=== PATIENT | female | born 1985 | race Caucasian/White ===

== ENCOUNTER 2017-11-10 11:54 | Emergency (ER) | payer OTHER ==
[~2017-11-10] VITALS: Ht 167.6 cm; Wt 68.0 kg
[~2017-11-10 11:54] MED LIST: CIPR500T PO; DIPH25CA58 PO; HYDR-971 PO; MEDR150D3 IM; NEOM28.32 TP; ONDA4TAB10 SL
[2017-11-10] MEDS ORDERED: IV NORMAL SALINE 1,000ML 1,000 ML IV ONE (12:15)
--- NOTE | 2017-11-10 12:23 | RAD ---
EXAM: Chest, single view. HISTORY: Near syncope. COMPARISON: None. FINDINGS: A frontal view of the chest is obtained. There is no infiltrate, pleural effusion or pneumothorax. The heart is normal in size. IMPRESSION: No acute pulmonary finding. Electronically signed by: Alyssa Stafford MD (11/10/2017 12:19 PM) [place] [id number]
[2017-11-10] MEDS ORDERED: LORazepam 1 MG TABLET PO ONE (12:30)
--- NOTE | 2017-11-10 12:34 | EKG ---
[address] [address] Test Date: 2017-11-10 Test Time: 12:06:10 Pat Name: HELGA CHENG Department: Room: Gender: F Manager Lsw: : 1985 Requested By: ANALI VEGA Order Number: [id number] Reading MD: Teddy Lopez MD Measurements Intervals [place] Rate: 73 P: 54 WA: 152 QRS: 66 QRSD: 88 T: 66 QT: 364 QTc: 404 Interpretive Statements SINUS RHYTHM Electronically Signed On 11-10-2017 12:43:04 CDT by Teddy Lopez MD
--- NOTE | 2017-11-10 12:45 | RAD ---
CT of the head without contrast, 11/10/2017: HISTORY: Near syncope The ventricles are within normal limits in size. There is no shift of the midline structures. There is no evidence of acute intracranial hemorrhage or mass effect. IMPRESSION: No acute intracranial abnormality is detected. RS Compliance Statement: One or more of the following individualized dose reduction techniques were utilized for this examination: 1. Automated exposure control 2. Adjustment of the mA and/or kV according to patient size 3. Use of iterative reconstruction technique Electronically signed by: Vicente Sam MD (11/10/2017 12:41 PM) [facility]
[2017-11-10 12:48] LABS: BASO % 1 % (0-3); EOS % 1 % (0-3); HEMATOCRIT 38.7 % (36.0-47.0); HEMOGLOBIN 13.3 g/dL (12.0-15.5); LYMPH # 1.8 x10^3/uL (1.0-4.8); LYMPH % 28 % (24-48); MEAN CORPUSCULAR HEMOGLOBIN 30 pg (25-35); MEAN CORPUSCULAR HGB CONC 34 g/dL (31-37); MEAN CORPUSCULAR VOLUME 88 fL (79-100); MONO # 0.4 x10^3/uL (0.0-1.1); MONO % 6 % (0-9); NEUT # 4.1 x10^3uL (1.8-7.7); NEUT % 65 % (31-73); PLATELET COUNT 226 x10^3/uL (140-400); RED BLOOD COUNT 4.39 x10^6/uL (3.50-5.40); RED CELL DISTRIBUTION WIDTH 12.9 % (11.5-14.5); WHITE BLOOD COUNT 6.3 x10^3/uL (4.0-11.0)
[2017-11-10 12:58] LABS: PREG TEST PT QUAL NEGATIVE (NEG)
[2017-11-10 13:06] LABS: ALBUMIN 4.2 g/dL (3.4-5.0); CALCIUM 9.4 mg/dL (8.5-10.1); CREATININE 0.7 mg/dL (0.6-1.0); DIRECT BILIRUBIN 0.1 mg/dL (0.0-0.2); GFR 98.3; POTASSIUM 3.3 mmol/L (3.5-5.1); TOTAL BILIRUBIN 0.5 mg/dL (0.2-1.0); TOTAL PROTEIN 7.5 g/dL (6.4-8.2)
[2017-11-10] MEDS ORDERED: IOHEXOL 300 MG/ML 75 ML VIAL. IV ONE (14:00)
--- NOTE | 2017-11-10 14:06 | RAD ---
CT ANGIOGRAPHY CHEST dated 11/10/2017 1:38 PM Indication:. Possible pulmonary embolusELEVATED D-DIMER, 75MLS OMNI 300 IV CONTRAST. Comparison: No comparison is available. Technique: Contiguous axial imaging the chest performed following intravenous and demonstration of 75 cc Omnipaque 300. Study was performed as dedicated PE protocol with thin cut coronal MIPS 3-D reconstruction. One or more of the following individualized dose reduction techniques were utilized for this examination: 1. Automated exposure control 2. Adjustment of the mA and/or kV according to patient size 3. Use of iterative reconstruction technique Findings: Contrast bolus is adequate. No evidence of central, lobar or segmental pulmonary embolus. Subsegmental branches are not well evaluated as on technique. Heart size is within normal limits. No pericardial effusion. There is some increased density in the anterior superior mediastinum that likely represents residual thymic tissue. No mediastinal, hilar or axillary lymphadenopathy. Thyroid gland is unremarkable. Central airways are patent. Lungs are clear without focal consolidation. Vascular interstitium within normal limits. No pleural effusion or pneumothorax. Limited images of upper abdomen unremarkable. No acute bony abnormality. IMPRESSION: 1. No evidence of central, lobar or segmental pulmonary embolus. 2. Clear lungs. The Electronically signed by: Yonathan Stroud MD (11/10/2017 2:03 PM) [facility]
--- NOTE | 2017-11-10 14:22 | PHYS DOC ---
Past History Past Medical History: Endometriosis, GERD, Ovarian Cyst, UTI, Other Past Surgical History: No Surgical History, Tonsillectomy Alcohol Use: None Drug Use: None Adult General Chief Complaint Chief Complaint: CHEST PAIN HPI HPI 32-year-old female presenting to the emergency department with chest tightness intermittently over the past 2-3 hours. She describes it as a tightness associated with tingling more in the left hand than the right. The tightness is moderate nonradiating intermittent and without alleviating factors. Patient denies high blood pressure high cholesterol diabetes smoking or family history of heart disease. She denies unilateral leg swelling oral contraceptives, hemoptysis personal or family history of blood clotting disorders. Review of systems is negative for fevers chills cough abdominal pain nausea or vomiting. All other review of systems is negative unless otherwise noted in history of present illness. ED course: 32-year-old female presenting to the emergency department today with chest pain. EKG obtained and reviewed by myself shows sinus rhythm with regular rate. ST segments congruent. Not suggestive of ACS. Head CT unremarkable. CBC and chemistry panel unremarkable. D-dimer was elevated. CT angiogram shows no evidence of pulmonary embolism. negative. Troponin negative. On reexamination she is feeling better. We will discharge her home to follow up with PCP. Heart score 0. The patient has been examined and was not found to have an emergency medical condition. The patient was then discharged home in stable condition to follow up with their primary care physician over the next 2- 3 days. They were to return if their symptoms worsened or if they were concerned for any reason. They were also instructed to return to the emergency department if they were unable to get the recommended and appropriate follow- up. [id number] discharge instructions and return precautions were given. Patient's questions were answered to their satisfaction. Patient is comfortable with plan. Review of Systems Review of Systems SEE ABOVE. Current Medications Current Medications Current Medications Medications (Trade) Dose Ordered Sig/Brittny Start Time Stop Time Status Last Admin Dose Admin Iohexol (Omnipaque 300 Mg/ml) 75 ml 1X ONCE 11/10/17 14:00 11/10/17 14:01 DC 11/10/17 13:48 75 ML Lorazepam (Ativan) 1 mg 1X ONCE 11/10/17 12:30 11/10/17 12:31 DC 11/10/17 13:06 1 MG Sodium Chloride 1,000 ml @ 1,000 mls/hr 1X ONCE 11/10/17 12:15 11/10/17 13:14 DC 11/10/17 13:06 1,000 MLS/HR Allergies Allergies Allergies Coded Allergies Type Severity Reaction Last Updated Verified bismuth subsalicylate Allergy Intermediate Hives 08/16/14 Yes famotidine Allergy Intermediate HIVES 08/16/14 Yes Physical Exam Physical Exam SEE ABOVE Constitutional: Well developed, well nourished, no acute distress, non-toxic appearance. [] HENT: Normocephalic, atraumatic, bilateral external ears normal, oropharynx moist, no oral exudates, nose normal. [] Eyes: PERRLA, EOMI, conjunctiva normal, no discharge. [] Neck: Normal range of motion, no tenderness, supple, no stridor. [] Cardiovascular:Heart rate regular rhythm, no murmur [] Lungs & Thorax: Bilateral breath sounds clear to auscultation [] Abdomen: Bowel sounds normal, soft, no tenderness, no masses, no pulsatile masses. [] Skin: Warm, dry, no erythema, no rash. [] Back: No tenderness, no CVA tenderness. [] Extremities: No tenderness, no cyanosis, no clubbing, ROM intact, no edema. [] Neurologic: Alert and oriented X 3, normal motor function, normal sensory function, no focal deficits noted. [] Psychologic: Affect normal, judgement normal, mood normal. [] Current Patient Data Vital Signs Vital Signs Date Time Temp Pulse Resp B/P (MAP) Pulse Ox O2 Delivery O2 Flow Rate FiO2 11/10/17 13:24 60 20 115/69 (84) 100 Room Air 11/10/17 11:54 98.1 Lab Results Laboratory Tests Test 11/10/17 12:27 White Blood Count 6.3 x10^3/uL (4.0-11.0) Red Blood Count 4.39 x10^6/uL (3.50-5.40) Hemoglobin 13.3 g/dL (12.0-15.5) Hematocrit 38.7 % (36.0-47.0) Mean Corpuscular Volume 88 fL (79-100) Mean Corpuscular Hemoglobin 30 pg (25-35) Mean Corpuscular Hemoglobin Concent 34 g/dL (31-37) Red Cell Distribution Width 12.9 % (11.5-14.5) Platelet Count 226 x10^3/uL (140-400) Neutrophils (%) (Auto) 65 % (31-73) Lymphocytes (%) (Auto) 28 % (24-48) Monocytes (%) (Auto) 6 % (0-9) Eosinophils (%) (Auto) 1 % (0-3) Basophils (%) (Auto) 1 % (0-3) Neutrophils # (Auto) 4.1 x10^3uL (1.8-7.7) Lymphocytes # (Auto) 1.8 x10^3/uL (1.0-4.8) Monocytes # (Auto) 0.4 x10^3/uL (0.0-1.1) Eosinophils # (Auto) 0.0 x10^3/uL (0.0-0.7) Basophils # (Auto) 0.0 x10^3/uL (0.0-0.2) D-Dimer (Milla) 0.75 mg/L (0.00-0.50) H Sodium Level 140 mmol/L (136-145) Potassium Level 3.3 mmol/L (3.5-5.1) L Chloride Level 106 mmol/L (98-107) Carbon Dioxide Level 28 mmol/L (21-32) Anion Gap 6 (6-14) Blood Urea Nitrogen 12 mg/dL (7-20) Creatinine 0.7 mg/dL (0.6-1.0) Estimated GFR (Cockcroft-Gault) 98.3 Glucose Level 107 mg/dL (70-99) H Calcium Level 9.4 mg/dL (8.5-10.1) Total Bilirubin 0.5 mg/dL (0.2-1.0) Direct Bilirubin 0.1 mg/dL (0.0-0.2) Aspartate Amino Transferase (AST) 17 U/L (15-37) Alanine Aminotransferase (ALT) 27 U/L (14-59) Alkaline Phosphatase 35 U/L (46-116) L Troponin I Quantitative < 0.017 ng/mL (0-0.055) Total Protein 7.5 g/dL (6.4-8.2) Albumin 4.2 g/dL (3.4-5.0) Lipase 251 U/L (73-393) Serum Test, Qualitative Negative (NEG) EKG EKG [] Radiology/Procedures Radiology/Procedures [] Course & Med Decision Making Course & Med Decision Making Pertinent Labs and Imaging studies reviewed. (See chart for details) [] Dragon Disclaimer Dragon Disclaimer This electronic medical record was generated, in whole or in part, using a voice recognition dictation system. Departure Departure: Impression: Primary Impression: Chest pain Additional Impression: Syncope Disposition: 01 HOME, SELF-CARE Condition: STABLE Referrals: DIEGO MOODY MD (PCP) Patient Instructions: Chest Pain (Nonspecific) Additional Instructions: Thank you for allowing us to participate in your care today. Return to the emergency department you have any new or worsening symptoms, or if you are concerned for any reason. Return to emergency department if you have any new or concerning symptoms including but not limited to fever, chills, nausea, vomiting, intractable pain, any new rashes, chest pain, shortness of air , uncontrolled bleeding, difficulty breathing, and/or vision loss. Follow up with your primary care physician within 3 days. Call your Primary Doctor tomorrow and inform them of your visit today. If you do not have a primary care provider we are happy to provide you with a list of our primary care providers contact information. This condition should be evaluated by your primary care physician and any recommended consulting services for continued management within 2-3 days after discharge. If at any time, you are having difficulty getting into your primary care doctor or a specialist, return to the emergency department. Problem Qualifiers ANALI VEGA MD Nov 10, 2017 14:22
[2017-11-10 14:55] VITALS: BP 104/62
== END 2017-11-10 16:00 | disposition home or self-care (01) ==
LOC: ER 11:54
DX: R07.89 Other chest pain (principal); R55 Syncope and collapse; K21.9 Gastro-esophageal reflux disease without esophagitis; Z87.440 Personal history of urinary (tract) infections; Z88.8 Allergy status to other drugs, medicaments and biological substances
CPT/HCPCS: 36415; 70450; 71045; 71275; 80048; 80076; 83690; 84484; 84703; 85025; 85379; 93005; 96360; 96361; 99285; Q9967; J7030

== ENCOUNTER 2018-10-09 00:22 | Emergency (ER) | payer BC, OTHER ==
[~2018-10-09] VITALS: Ht 170.2 cm; Wt 68.0 kg
[~2018-10-09 00:22] MED LIST changes: +HYDR-3165 PO; -HYDR-971 PO
--- NOTE | 2018-10-09 00:27 | ED.ADGEN ---
Past History Past Medical History: Endometriosis, GERD, Ovarian Cyst, UTI, Other Past Surgical History: No Surgical History, Tonsillectomy Alcohol Use: None Drug Use: None Adult General Chief Complaint Chief Complaint ".. I was running over these [employer] course at [facility].. And twisted my left knee... And had surgery on this meniscus before when I asked about age 17... This hurts more than it did then.." HPI HPI Patient is a 33 year old female who presents with Lt knee injury. Patient able to do straight leg lift with pain. Unable to bend knee due to pain and swe lling. Patient localizes pain to collateral ligaments and medial meniscus. Has scars from previous knee surgery. Distal neurovascular appears intact. There is swelling in left knee as compared to right knee. Patient denies any other injury. Is not able to bear weight without marked pain. Injury occurred approximately 1700 hrs. Review of Systems Review of Systems Constitutional: Denies fever or chills [] Eyes: Denies change in visual acuity, redness, or eye pain [] HENT: Denies nasal congestion or sore throat [] Respiratory: Denies cough or shortness of breath [] Cardiovascular: No additional information not addressed in HPI [] GI: Denies abdominal pain, nausea, vomiting, bloody stools or diarrhea [] : Denies dysuria or hematuria [] Musculoskeletal: Complaints of left knee pain Integument: Denies rash or skin lesions [] Neurologic: Denies headache, focal weakness or sensory changes [] Endocrine: Denies polyuria or polydipsia [] All other systems were reviewed and found to be within normal limits, except as documented in this note. Family History Family History Noncontributory Current Medications Current Medications Current Medications Medications (Trade) Dose Ordered Sig/Brittny Start Time Stop Time Status Last Admin Dose Admin Hydrocodone Bitartrate/ Ibuprofen (Vicoprofen 7.5-200) 2 tab 1X ONCE 10/09/18 01:30 10/09/18 01:31 DC 10/09/18 01:35 2 TAB Allergies Allergies Allergies Coded Allergies Type Severity Reaction Last Updated Verified bismuth subsalicylate Allergy Intermediate Hives 08/16/14 Yes famotidine Allergy Intermediate HIVES 08/16/14 Yes Physical Exam Physical Exam Constitutional: Well developed, well nourished, in moderately acute distress, non-toxic appearance. [] HENT: Normocephalic, atraumatic, bilateral external ears normal, oropharynx moist, no oral exudates, nose normal. [] Eyes: PERRLA, EOMI, conjunctiva normal, no discharge. [] Neck: Normal range of motion, no tenderness, supple, no stridor. [] Cardiovascular:Heart rate regular rhythm, no murmur [] Lungs & Thorax: Bilateral breath sounds clear to auscultation [] Abdomen: Bowel sounds normal, soft, no tenderness, no masses, no pulsatile masses. [] Skin: Warm, dry, no erythema, no rash. [] Back: No tenderness, no CVA tenderness. [] Extremities: No tenderness, no cyanosis, no clubbing, ROM intact, no edema. []Except findings in left knee as per history of present illness Neurologic: Alert and oriented X 3, normal motor function, normal sensory function, no focal deficits noted. [] Psychologic: Affect anxious, judgement normal, mood normal. [] Current Patient Data Vital Signs Vital Signs Date Time Temp Pulse Resp B/P (MAP) Pulse Ox O2 Delivery O2 Flow Rate FiO2 10/09/18 00:42 98.2 77 18 98 Room Air Lab Results Laboratory Tests Test 10/09/18 01:15 Urine Collection Type Unknown Urine Color Yellow Urine Clarity Hazy Urine pH 6.5 Urine Specific [place] 1.020 Urine Protein Neg (NEG-TRACE) Urine Glucose (UA) Neg mg/dL (NEG) Urine Ketones (Stick) Trace mg/dL (NEG) Urine Blood Neg (NEG) Urine Nitrite Neg (NEG) Urine Bilirubin Neg (NEG) Urine Urobilinogen Dipstick 2 mg/dL (0.2 mg/dL) Urine Leukocyte Esterase Neg (NEG) Urine RBC Occ /HPF (0-2) Urine WBC 1-4 /HPF (0-4) Urine Squamous Epithelial Cells Mod /LPF Urine Bacteria 0 /HPF (0-FEW) Urine Mucus Mod /LPF Urine Opiates Screen Neg (NEG) Urine Methadone Screen Neg (NEG) Urine Barbiturates Neg (NEG) Urine Phencyclidine Screen Neg (NEG) Urine Amphetamine/Methamphetamine Neg (NEG) Urine Benzodiazepines Screen Neg (NEG) Urine Cocaine Screen Neg (NEG) Urine Cannabinoids Screen Pos (NEG) Urine Ethyl Alcohol Neg (NEG) EKG EKG [] Radiology/Procedures Radiology/Procedures My interpretation of left knee film shows soft tissue edema. No obvious fracture or dislocation.[] Course & Med Decision Making Course & Med Decision Making Pertinent Labs and Imaging studies reviewed. (See chart for details). Distal neurovascular intact after application of Gage wrap and OCL splint Patient rest. Elevated knee. Wear splint. Use crutches. Ice packs as needed. Tylenol and ibuprofen for pain. For marked pain may Vicoprofen up to 4 times a day. Must follow-up primary care. Follow-up orthopedics. Return if any concerns. [] Final Impression Final Impression 1. Left knee injury -meniscus and collateral ligament[] Dragon Disclaimer Dragon Disclaimer This electronic medical record was generated, in whole or in part, using a voice recognition dictation system. Discharge Summary Visit Information Final Diagnosis Problems Medical Problems: (1) Left knee sprain Status: Acute Brief Hospital Course Allergies Allergies Coded Allergies Type Severity Reaction Last Updated Verified bismuth subsalicylate Allergy Intermediate Hives 08/16/14 Yes famotidine Allergy Intermediate HIVES 08/16/14 Yes Vital Signs Vital Signs Date Time Temp Pulse Resp B/P (MAP) Pulse Ox O2 Delivery O2 Flow Rate FiO2 10/09/18 00:42 98.2 77 18 98 Room Air Lab Results Laboratory Tests Test 10/09/18 01:15 Urine Collection Type Unknown Urine Color Yellow Urine Clarity Hazy Urine pH 6.5 Urine Specific [place] 1.020 Urine Protein Neg (NEG-TRACE) Urine Glucose (UA) Neg mg/dL (NEG) Urine Ketones (Stick) Trace mg/dL (NEG) Urine Blood Neg (NEG) Urine Nitrite Neg (NEG) Urine Bilirubin Neg (NEG) Urine Urobilinogen Dipstick 2 mg/dL (0.2 mg/dL) Urine Leukocyte Esterase Neg (NEG) Urine RBC Occ /HPF (0-2) Urine WBC 1-4 /HPF (0-4) Urine Squamous Epithelial Cells Mod /LPF Urine Bacteria 0 /HPF (0-FEW) Urine Mucus Mod /LPF Urine Opiates Screen Neg (NEG) Urine Methadone Screen Neg (NEG) Urine Barbiturates Neg (NEG) Urine Phencyclidine Screen Neg (NEG) Urine Amphetamine/Methamphetamine Neg (NEG) Urine Benzodiazepines Screen Neg (NEG) Urine Cocaine Screen Neg (NEG) Urine Cannabinoids Screen Pos (NEG) Urine Ethyl Alcohol Neg (NEG) Brief Hospital Course Ms. Galvan is a 33 old female who presented with Lt knee injury. Discharge Information Condition at Discharge: Improved, Stable Disposition/Orders: D/C to Home Dischare Medications Current Medications Hydrocodone Bitartrate/ Ibuprofen (Vicoprofen 7.5-200) 2 tab 1X ONCE PO Last administered on 10/09/18at 01:35; Admin Dose 2 TAB; Start 10/09/18 at 01:30; Stop 10/09/18 at 01:31; Status DC Active Scripts Active Hydrocodone-Ibuprofen 7.5-200 (Hydrocodone/Ibuprofen) 1 Each Tablet 1 Tab PO PRN Q6HRS PRN Neosporin Ointment (Neomy Sulf/Bacitrac Zn/Poly) 28.3 Gm Oint...g. 28.3 Gm TP TID Benadryl (Diphenhydramine Hcl) 25 Mg Capsule 1 Cap PO QID Ciprofloxacin Hcl 500 Mg Tablet 1 Tab PO BID Zofran Odt (Ondansetron) 4 Mg Tab.rapdis 1 Tab SL Q6HRS [place] 5-325 Tablet (Hydrocodone Bit/Acetaminophen) 1 Each Tablet 2 Tab PO PRN Q6HRS PRN Reported Depo-Provera (Medroxyprogesterone Acetate) 150 Mg/1 Ml Disp.syrin 1 Ml IM [id number] Dragon Disclaimer This chart was dictated in whole or in part using Voice Recognition software in a busy, high-work load, and often noisy Emergency Department environment. It may contain unintended and wholly unrecognized errors or omissions. QUIRINO MESSER MD Oct 09, 2018 00:27
[2018-10-09 00:42] VITALS: BP 111/81
[2018-10-09] MEDS ORDERED: HYDR-1179 PO (01:20)
[2018-10-09] MEDS ORDERED: HYDROcodon/IBUPROFEN 7.5/200MG 1 TAB TABLET PO ONE (01:30)
[2018-10-09 01:46] LABS: BARBITURATES NEG (NEG); BENZODIAZEPINES NEG (NEG); CANNABINOIDS POS (NEG); COCAINE NEG (NEG); METHADONE NEG (NEG); OPIATES NEG (NEG); PHENCYCLIDINE NEG (NEG)
[2018-10-09 02:01] LABS: AMPHETAMINE/METHAMPHETAMINE NEG (NEG)
[2018-10-09 02:05] LABS: BILIRUBIN,URINE NEG (NEG); CLARITY,URINE HAZY; COLOR,URINE YELLOW; GLUCOSE,URINE NEG (NEG); NITRITE,URINE NEG (NEG); UROBILINOGEN,URINE 2 mg/dL (0.2 mg/dL)
[2018-10-09 02:06] LABS: BACTERIA,URINE 0 /HPF (0-FEW); RBC,URINE OCC /HPF (0-2); SQUAMOUS EPITHELIAL CELL,UR MOD /LPF
--- NOTE | 2018-10-09 07:47 | RAD ---
Left knee 4 views. HISTORY: Left knee injury, pain 4 views were taken of the left knee. There is no fracture or joint effusion or acute osseous abnormality. IMPRESSION: 1. No acute osseous abnormality noted in the left knee. Electronically signed by: Bharat Houston MD (10/09/2018 7:44 AM) [facility]
== END 2018-10-09 02:35 | disposition home or self-care (01) ==
LOC: ER 00:22
DX: S83.92XA Sprain of unspecified site of left knee, initial encounter (principal); K21.9 Gastro-esophageal reflux disease without esophagitis; Z87.440 Personal history of urinary (tract) infections; Z88.8 Allergy status to other drugs, medicaments and biological substances; X50.1XXA Overexertion from prolonged static or awkward postures, initial encounter; Y93.89 Activity, other specified; Y92.89 Other specified places as the place of occurrence of the external cause; Y99.8 Other external cause status
CPT/HCPCS: 29515; 36415; 73564; 80307; 81001; 99285